=== PATIENT | male | born 1950 | race Caucasian/White ===

== ENCOUNTER 2025-03-08 18:08 | Inpatient (IN) | payer MEDICARE ==
[2025-03-08] MEDS ORDERED: Sodium Chloride 0.9% 10 ML Syringe FLUSH PRN (18:34)
[2025-03-08] MEDS: Albuterol/Ipratropium 3.0-0.5 MG/3 ML Neb Soln NEB ONE ×2 (18:50→19:57)
[2025-03-08] MEDS: methylPREDNISolone Sodium Succinate 125 MG/2 ML SDV IVPUSH ONE (18:59)
[2025-03-08 19:21] LABS: BASOPHILS ABSOLUTE AUTO 0.06 K/uL (0.00-0.10); BASOPHILS PERCENT AUTO 0.5 % (0.1-1.3); EOSINOPHILS PERCENT AUTO 0.1 % (0.0-5.4); HEMATOCRIT 52.7 % (38.4-49.7); HEMOGLOBIN 17.2 g/dL (12.9-16.9); IMMATURE GRAN ABSOLUTE AUTO 0.07 K/uL (0.00-0.23); IMMATURE GRAN PERCENT AUTO 0.5 % (0.0-0.7); LYMPHOCYTES ABSOLUTE AUTO 0.53 K/uL (0.8-3.3); MEAN CORPUSCULAR HEMOGLOBIN 31.2 pg (31.6-35.5); MEAN CORPUSCULAR HGB CONC 32.6 g/dL (31.6-35.5); MEAN CORPUSCULAR VOLUME 95.6 fL (81.4-99.0); MONOCYTES ABSOLUTE AUTO 0.54 K/uL (0.20-0.90); MONOCYTES PERCENT AUTO 4.1 % (3.3-12.6); NEUTROPHILS ABSOLUTE AUTO 12.01 K/uL (1.0-7.6); NEUTROPHILS PERCENT AUTO 90.8 % (40.0-78.1); PLATELET COUNT,PLT 222 K/uL (130-375); RED BLOOD CELL COUNT 5.51 M/uL (4.14-5.76); WHITE BLOOD CELL COUNT,WBC 13.2 K/uL (3.2-11.0)
[2025-03-08 19:27] LABS: EOSINOPHILS ABSOLUTE AUTO 0.01 K/uL (0.00-0.40)
[2025-03-08 19:45] LABS: ALANINE AMINOTRANSFERASE,ALT 53 U/L (12-78); ALBUMIN 4.3 g/dL (3.4-5.0); ALKALINE PHOSPHATASE 90 U/L (46-116); ANION GAP 19.2 mmol/L (5.0-14.0); ASPARTATE AMNIOTRANSFERASE,AST 38 U/L (15-37); BILIRUBIN TOTAL 0.8 mg/dL (0.2-1.0); BLOOD UREA NITROGEN,BUN 23 mg/dL (7-18); CALCIUM 9.6 mg/dL (8.5-10.1); CARBON DIOXIDE,CO2 22 mmol/L (21-32); CHLORIDE,CL 103 mmol/L (100-108); CREATININE 0.8 mg/dL (0.8-1.3); EST CRCL DRUG DOSING (CG) 102.09 mL/min; ESTIMATED GFR 93 mL/min (>60); GLUCOSE RANDOM 139 mg/dL (74-106); POTASSIUM,K 4.1 mmol/L (3.6-5.2); PROTEIN TOTAL,TP 8.5 g/dL (6.4-8.2); SODIUM,NA 144 mmol/L (140-148)
[2025-03-08] MEDS: EPINEPHrine 1 MG/ML SDV IM ONE (19:51)
[2025-03-08 21:14] LABS: BASE EXCESS ARTERIAL -7.4 mm/L; BICARBONATE,ARTERIAL 21.8 mmol/L (22.0-26.0); CARBOXYHEMOGLOBIN 1.4 % (0.0-1.6); METHEMOGLOBIN 0.9 %; O2 SATURATION ARTERIAL 96.7 % (95.0-98.0); OXYHEMOGLOBIN 94.5 %; PCO2 ARTERIAL 58.4 mmHg (35.0-42.0); TOTAL HEMOGLOBIN 17.4 g/dL (13.5-18.0)
[2025-03-08] MEDS: LORazepam 2 MG/ML SDV IVPUSH ONE (22:35)
[2025-03-08 23:17] LABS: BASE EXCESS ARTERIAL -5.4 mm/L; BICARBONATE,ARTERIAL 22.1 mmol/L (22.0-26.0); CARBOXYHEMOGLOBIN 1.7 % (0.0-1.6); METHEMOGLOBIN 0.4 %; O2 SATURATION ARTERIAL 97.7 % (95.0-98.0); OXYHEMOGLOBIN 95.6 %; PCO2 ARTERIAL 51.1 mmHg (35.0-42.0); TOTAL HEMOGLOBIN 17.1 g/dL (13.5-18.0)
[2025-03-09] MEDS ORDERED: Albuterol 0.083% 2.5 MG/3 ML Neb Soln NEB PRN (01:16)
[2025-03-09] MEDS ORDERED: Sodium Chloride 0.9% 10 ML Syringe FLUSH PRN (01:16)
[2025-03-09] MEDS ORDERED: Polyethylene Glycol 3350 Powder 17 GM Packet PO PRN (01:16)
[2025-03-09] MEDS ORDERED: Acetaminophen 325 MG Tab PO PRN (01:16)
[2025-03-09] MEDS: Sodium Chloride 0.9% 1,000 ML IV SCH (01:42)
[2025-03-09] MEDS: Atenolol 25 MG Tab PO ONE (01:54)
[2025-03-09] MEDS: Doxycycline 100 MG in Sodium Chloride 0.9% 100 ML IV SCH (01:55)
[2025-03-09] MEDS: cefTRIAXone 1 GM in Sodium Chloride 0.9% 50 ML IV SCH (02:58)
[2025-03-09 05:57] LABS: BASE EXCESS ARTERIAL -2.9 mm/L; BICARBONATE,ARTERIAL 23.7 mmol/L (22.0-26.0); CARBOXYHEMOGLOBIN 1.8 % (0.0-1.6); METHEMOGLOBIN 0.9 %; O2 SATURATION ARTERIAL 96.2 % (95.0-98.0); OXYHEMOGLOBIN 93.6 %; PCO2 ARTERIAL 49.3 mmHg (35.0-42.0); PO2 ARTERIAL 83.8 mmHg (75.0-100.0); TOTAL HEMOGLOBIN 16.5 g/dL (13.5-18.0)
[2025-03-09 05:59] LABS: HEMATOCRIT 48.2 % (38.4-49.7); HEMOGLOBIN 15.9 g/dL (12.9-16.9); MEAN CORPUSCULAR HEMOGLOBIN 31.2 pg (31.6-35.5); MEAN CORPUSCULAR VOLUME 94.5 fL (81.4-99.0); RED BLOOD CELL COUNT 5.1 M/uL (4.14-5.76); WHITE BLOOD CELL COUNT,WBC 9.1 K/uL (3.2-11.0)
[2025-03-09 06:13] LABS: ANION GAP 15.7 mmol/L (5.0-14.0); CALCIUM 9.3 mg/dL (8.5-10.1); CREATININE 0.7 mg/dL (0.8-1.3); EST CRCL DRUG DOSING (CG) 114.52 mL/min; MAGNESIUM 1.9 mg/dL (1.8-2.4); POTASSIUM,K 4.1 mmol/L (3.6-5.2)
[2025-03-09] MEDS: Albuterol/Ipratropium 3.0-0.5 MG/3 ML Neb Soln NEB SCH (07:13)
[2025-03-09] MEDS ORDERED: Tiotropium Bromide 4 GM Inhalation Spray (2.5mcg/1 dose; 10 doses) INH SCH ×2 (07:30→09:00)
[2025-03-09] MEDS: hydrALAZINE 25 MG Tab PO SCH (08:37)
[2025-03-09] MEDS: predniSONE 20 MG Tab PO SCH (08:37)
[2025-03-09] MEDS: atorvaSTATin 20 MG Tab PO SCH (08:37)
[2025-03-09] MEDS: Enoxaparin 40 MG/0.4 ML Syringe SUBCUT SCH (08:38)
[2025-03-09] MEDS: FELODIPINE 10 MG PO SCH (08:38)
[2025-03-09] MEDS: Formoterol/Mometasone 100-5 MCG 8.8 GM Inhaler INH SCH (08:53)
[2025-03-09] MEDS ORDERED: Formoterol/Mometasone 100-5 MCG 8.8 GM Inhaler INH SCH (09:00)
[2025-03-09] MEDS ORDERED: FELODIPINE 10 MG PO SCH (09:00)
[2025-03-09] MEDS: Ondansetron 4 MG/2 ML SDV IV PRN (10:32)
[2025-03-09] MEDS: Atenolol 25 MG Tab PO SCH ×2 (16:04→20:09)
[2025-03-09 17:02] LABS: BASE EXCESS ARTERIAL -0.1 mm/L; BICARBONATE,ARTERIAL 26.8 mmol/L (22.0-26.0); CARBOXYHEMOGLOBIN 1.6 % (0.0-1.6); METHEMOGLOBIN 0.9 %; O2 SATURATION ARTERIAL 92.9 % (95.0-98.0); OXYHEMOGLOBIN 90.6 %; PCO2 ARTERIAL 54.5 mmHg (35.0-42.0); PO2 ARTERIAL 70.8 mmHg (75.0-100.0)
[2025-03-09] MEDS: Melatonin 3 MG Tab PO SCH (20:09)
[2025-03-09] MEDS: Montelukast 10 MG Tab PO SCH (20:09)
[2025-03-09] MEDS: Tiotropium Bromide 4 GM Inhalation Spray (2.5mcg/1 dose; 10 doses) INH SCH (20:11)
[2025-03-09] MEDS: LORazepam 0.5 MG Tab PO PRN (22:26)
[2025-03-10 05:18] LABS: MEAN CORPUSCULAR HEMOGLOBIN 31.4 pg (31.6-35.5); MEAN CORPUSCULAR HGB CONC 33.3 g/dL (31.6-35.5); MEAN CORPUSCULAR VOLUME 94.1 fL (81.4-99.0); RED BLOOD CELL COUNT 4.78 M/uL (4.14-5.76); WHITE BLOOD CELL COUNT,WBC 10.6 K/uL (3.2-11.0)
[2025-03-10 05:19] LABS: BICARBONATE,ARTERIAL 27.9 mmol/L (22.0-26.0); CARBOXYHEMOGLOBIN 2.4 % (0.0-1.6); METHEMOGLOBIN 0.8 %; OXYHEMOGLOBIN 96.4 %; PCO2 ARTERIAL 45.5 mmHg (35.0-42.0); TOTAL HEMOGLOBIN 15.7 g/dL (13.5-18.0)
[2025-03-10 05:20] LABS: O2 SATURATION ARTERIAL > 99.3 % (95.0-98.0)
[2025-03-10 05:39] LABS: ANION GAP 12.3 mmol/L (5.0-14.0); CREATININE 0.6 mg/dL (0.8-1.3); EST CRCL DRUG DOSING (CG) 136.13 mL/min; POTASSIUM,K 3.7 mmol/L (3.6-5.2)
[2025-03-10] MEDS: Atenolol 25 MG Tab PO SCH (08:21)
[2025-03-10] MEDS: Cefdinir 300 MG Cap PO SCH (20:19)
[2025-03-10] MEDS: Doxycycline 100 MG Cap PO SCH (20:19)
== END 2025-03-12 14:35 | disposition home or self-care (01) | DRG 189 ==
LOC: JP.ED 18:08 → JP.MS 03-09 00:19
PROVIDERS: ADMIT Hospitalist; ATTEND Hospitalist
PROC: 4A133R1 Monitoring of Arterial Saturation, Peripheral, Percutaneous Approach (ICD-10-PCS; principal; 2025-03-08)
PROC: 5A09357 Assistance with Respiratory Ventilation, Less than 24 Consecutive Hours, Continuous Positive Airway Pressure (ICD-10-PCS; 2025-03-09)
DX: J96.21 Acute and chronic respiratory failure with hypoxia (principal); J45.51 Severe persistent asthma with (acute) exacerbation; J96.22 Acute and chronic respiratory failure with hypercapnia; E78.00 Pure hypercholesterolemia, unspecified; I10 Essential (primary) hypertension; J40 Bronchitis, not specified as acute or chronic; Z88.0 Allergy status to penicillin; Z79.52 Long term (current) use of systemic steroids; Z79.899 Other long term (current) drug therapy
CPT/HCPCS: 36415; 36600 ×2; 71045 ×2; 80053; 82803 ×2; 83605; 84484; 85025; 85379; 87426; 94640 ×2; 94660; 96372; 96374; 96375; 99285; A9270 ×2; J0171; J2060; J2919; 80048; 83735; 85027; 93010; 97161-GP; 97530-GP; 99223; 99232; 99238; 99283; J0696; J1650; J2405; J3490; J7030; J7512